=== PATIENT | female | born 1950 | race Caucasian/White ===

== ENCOUNTER → 2017-03-14 | Outpatient (CLI) | payer OTHER ==
[~2017-03-14] VITALS: Ht 160 cm; Wt 67.1 kg
[~2017-03-14] MED LIST: ALPHA LIPOIC A100 MG PO; ASPIR 8181 MG PO; CALCIUM 600 MG1 EAC2 PO; CEROVITE SENIO1 EACH PO; CO Q-10100 MG PO; GARLIC OIL1000 MG PO; GLUCOSAMINE CH1 EA10 PO; HARD NAILS2500 MCG PO; LEVOTHYROXIN0.175 MG PO; LIPITOR 20 MG T20 M1 PO; MAGNESIUM PO; NATURAL LUTEIN20 MG PO; NIACIN500 MG PO; OMEGA 3 1,0001 EACH PO; PRINIVIL40 MG PO; RANITIDINE HCL300 MG PO; VITAMIN C500 M1 PO; VITAMIN D31000 UNI2 PO; VITAMIN K240 MCG PO; ZOLOFT25 MG PO
--- NOTE | ~2017-03-14 | S ---
[facility] [place] [address] SURGICAL PATH RPT PROCEDURE Name: MEME HOWARD Room #: REG AMY Beau.#: [id number] Admission: 03/14/17 Date of : 52 Discharge: Report #: [id number] Path Case #: [id number] PATHOLOGY REPORT COLLECTION DATE: 03/14/2017 RECEIVED DATE: 03/15/2017 SUBMITTING PHYS: Dr. Esdras Simpson OTHER PHYS: Dr. Katiana Duran SPECIMEN(S) RECEIVED: A.Gastric body B.GE junction C.Polyp cecum D.Polyp ascending colon * * * * * * * * * * * * FINAL DIAGNOSIS: A. Gastric, gastric body, endoscopic biopsy: - No significant diagnostic abnormalities present. - Negative for Helicobacter pylori. B. Gastroesophageal mucosa, GE junction, endoscopic biopsy : - Specialized columnar epithelium with intestinal metaplasia, consistent with Samaniego's metaplasia. - Negative for dysplasia. - Squamous mucosa with mild esophagitis and changes compatible with reflux. C. Polyp, cecum polyp, endoscopic biopsy: - Tubular adenoma. - Negative for high grade dysplasia. D. Polyp, ascending colon polyp, endoscopic biopsy: - Tubular adenoma. - Negative for high grade dysplasia. COMMENT: Well-controlled Helicobacter pylori immunohistochemical stain performed on block A1 negative. (IUV:csd; d/t: 03/16/2017) PATHOLOGIST: Lawanda Hayes M.D. REPORT ELECTRONICALLY SIGNED BY: Lawanda Hayes M.D. DATE/TIME: 03/16/2017 15:27 * * * * * * * * * * * * GROSS PATHOLOGY: A. Received in formalin labeled "Meme Howard, gastric body," are four segments of verdin soft tissue measuring 1.0 x 0.8 x 0.[address] [address] SURGICAL PATH RPT PROCEDURE [facility] Bret#: [id number] Admission: 03/14/17 Date of : 52 Discharge: Report #: [id number] Path Case #: [id number] aggregate dimensions and ranging from 0.4 to 0.7 cm in maximum dimension. The specimen is submitted entirely in cassette A1. B. Received in formalin labeled "Meme Howard, GE junction," are two segments of verdin soft tissue measuring 0.8 x 0.6 x 0.1 cm in aggregate dimensions and ranging from 0.5 to 0.6 cm in maximum dimension. The specimen is submitted entirely in cassette B1. C. Received in formalin labeled "Meme Howard, polyp cecum," are seven segments of verdin soft tissue measuring 1.1 x 1.0 x 0.2 cm in aggregate dimensions and ranging from 0.3 to 0.5 cm in maximum dimension. The specimen is submitted entirely in cassette C1. D. Received in formalin labeled "Meme Howard, polyp ascending colon," are two segments of verdin soft tissue measuring 0.3 cm in aggregate dimensions and ranging from 0.2 to 0.3 cm in maximum dimension. The specimen is submitted entirely in cassette D1. (CAA; 03/15/2017) CLINICAL HISTORY: History of colon polyps, history of reflux, gastritis, esophagitis, colon polyps INITIAL CPT CODE(S): A; 30002, 36232 B; 42823 C; 54209 D; 39607 Professional services performed by [facility] at [place] [address], [place] [address] Technical services performed by [facility] at [address] [place] [address], [address], [place] [address]. [facility] [address] [place] [address] PHONE: [phone] DIRECTOR: Corbin Mendoza M.D. * * * END OF REPORT * * *
--- NOTE | ~2017-03-14 | P ---
[facility] [place] [address] PROCEDURE REPORT Name: MEME HOWARD [facility] [id number] Admission: 03/14/17 Attend Phys: Esdras Leone Discharge: Date of : 52 Report #: [id number] THIS REPORT FOR: //name// CC: Esdras Duran MD DATE OF SERVICE: 03/14/2017 PROCEDURE PERFORMED: Upper endoscopy with biopsies. HISTORY OF PRESENT ILLNESS: The patient is a 66-year-old female with a history of intermittent heartburn symptoms. She has been on Zantac now for 2 weeks and reports some improvement. She denies any dysphagia. Plan is for upper endoscopy. DESCRIPTION OF PROCEDURE: The risks and benefits of the procedure were explained to the patient, those risks including but not limited to bleeding, perforation, the risk of sedation. She understood these risks and gave informed consent. Sedation was given using propofol per anesthesia. Next, using a standard [employer] upper endoscope, the scope was placed in the patient's mouth and advanced under direct vision through the esophagus, stomach and into the second portion of the duodenum. The larynx was normal in appearance. The upper and mid esophagus was normal in appearance. In the distal esophagus, there was grade B erosive esophagitis. In the high cardia, there was mild inflammation. Biopsies were obtained just near the GE junction. There was a mild gastritis noted in the gastric fundus and body. Biopsies were obtained to rule out the possibility of H. pylori. The pylorus was normal and patent. The duodenal bulb, first and second portion were all normal. The scope was then withdrawn and the procedure terminated. The patient tolerated the procedure well. There is retroflexion in the stomach. A small hiatal hernia was noted. IMPRESSION: 1. Grade B erosive esophagitis. 2. Small hiatal hernia. 3. Mild gastritis. 4. Mild inflammation at the high cardia. RECOMMENDATIONS: 1. Await biopsy results. 2. Would recommend discontinuing Zantac and starting daily PPI therapy. [facility] [address] [place] [address] PROCEDURE REPORT Name: MEME HOWARD Room #: REG AMY Queen#: [id number] Admission: 03/14/17 Attend Phys: Esdras Leone Discharge: Date of : 52 Report #: [id number] Thank you for allowing me to participate in her care. <ELECTRONICALLY SIGNED> By: Esdras Simpson MD 03/16/17 0820 1006 [id number] Esdras Simpson MD /nt
--- NOTE | ~2017-03-14 | P ---
[facility] [place] [address] PROCEDURE REPORT Name: MEME HOWARD [facility] [id number] Admission: 03/14/17 Attend Phys: Esdras Leone Discharge: Date of : 52 Report #: [id number] THIS REPORT FOR: //name// CC: Esdras Duran MD DATE OF SERVICE: 03/14/2017 DATE OF SERVICE: 03/14/2017 PROCEDURE PERFORMED: Colonoscopy with biopsies. HISTORY OF PRESENT ILLNESS: The patient is a 66-year-old female with a history of colon polyps, last colonoscopy in 2009. She denies any symptoms other than heartburn. Upper endoscopy was just performed showing grade B erosive esophagitis. No family history of colon cancer. DESCRIPTION OF PROCEDURE: The risks and benefits of the procedure were explained to the patient, those risks including but not limited to bleeding, perforation and the risk of sedation. She understood these risks and gave informed consent. Sedation was given using propofol per anesthesia. Next, a digital rectal exam was initially performed, which was normal. Next, using a standard [employer] colonoscope, the scope was placed in the patient's anus and advanced under direct vision to the cecum. The overall prep was excellent. In the cecum, there was a 5 mm sessile polyp. This was removed with cold forceps, otherwise normal. The ileocecal valve was normal. In the ascending colon, there was a 3 mm sessile polyp also removed with cold forceps. The transverse and descending colon were normal. Multiple small diverticula were noted in the sigmoid colon, otherwise normal. The rectal mucosa was normal. On retroflexion, small nonbleeding internal hemorrhoids were noted, otherwise normal colonoscopy. The scope was then withdrawn and the procedure terminated. The patient tolerated the procedure well. IMPRESSION: 1. Two small colonic polyps. 2. Sigmoid diverticulosis. 3. Internal hemorrhoids. 4. Otherwise, normal colonoscopy. RECOMMENDATIONS: 1. Await biopsy results. 2. If polyps are hyperplastic, repeat in 10 years; if adenomatous polyps, repeat in [address] [address] PROCEDURE REPORT Name: MEME HOWARD MARIA T Room #: REG [facility] Bret#: [id number] Admission: 03/14/17 Attend Phys: Esdras Leone Discharge: Date of : 52 Report #: [id number] Thank you for allowing me to participate in her care. <ELECTRONICALLY SIGNED> By: Esdras Simpson MD 03/16/17 0820 1030 [id number] Esdras Simpson MD /nt
== END ==
LOC: GI 07:50
DX: Z12.11 Encounter for screening for malignant neoplasm of colon (principal); D12.2 Benign neoplasm of ascending colon; D12.0 Benign neoplasm of cecum; K57.30 Diverticulosis of large intestine without perforation or abscess without bleeding; K64.8 Other hemorrhoids; K22.10 Ulcer of esophagus without bleeding; K44.9 Diaphragmatic hernia without obstruction or gangrene; K29.70 Gastritis, unspecified, without bleeding; F32.9 Major depressive disorder, single episode, unspecified; F41.9 Anxiety disorder, unspecified; I10 Essential (primary) hypertension; E78.00 Pure hypercholesterolemia, unspecified; K21.9 Gastro-esophageal reflux disease without esophagitis; E03.9 Hypothyroidism, unspecified; Z90.710 Acquired absence of both cervix and uterus; F17.210 Nicotine dependence, cigarettes, uncomplicated